=== PATIENT | male | born 1990 | race African-American/Black ===

== ENCOUNTER 2021-09-14 09:27 | Outpatient (CLI) | payer BC | END 2021-09-14 09:28 | disposition home or self-care (01) | LOC: BICMRI 09:27 | PROVIDERS: ATTEND Orthopaedic Surgery | DX: S83.512A Sprain of anterior cruciate ligament of left knee, initial encounter (principal); S80.02XA Contusion of left knee, initial encounter; M25.462 Effusion, left knee; S83.282A Other tear of lateral meniscus, current injury, left knee, initial encounter ==

== ENCOUNTER 2021-10-10 09:29 | Outpatient (CLI) | payer BC ==
[2021-10-10 10:39] LABS: #Basophils 0.1 10x3/uL (0.0-0.2); #Eosinphils 0.1 10x3/uL (0.0-0.5); #Monocytes 0.9 10x3/uL (0.0-1.1); #Neutrophils 4.6 10x3/uL (1.5-8.4); %Basophils 0.6 % (0.0-2.0); %Eosinophils 1.6 % (0.0-6.0); %Lymphocytes 28.1 % (18.0-47.0); %Monocytes 11.6 % (0.0-10.0); %Neutrophils 57.8 % (40.0-75.0); Hemoglobin 13.3 g/dL (13.5-17.5); Mean Corpuscular HGB CONC 32.4 g/dL (32.0-36.0); Mean Corpuscular Hemoglobin 27.8 pg (27.0-33.0); Mean Corpuscular Volume 85.6 fl (81.2-95.1); Mean Platelet Volume 10.9 fl (7.4-10.4); Platelet Count 227 10x3/uL (150-450); RBC Distribution Width 12.3 % (11.5-14.5); Red Blood Cell (RBC) Count 4.79 10x6/uL (4.32-5.72); White Blood Cell (WBC) Count 7.9 10x3/uL (3.5-10.5)
== END 2021-10-10 09:30 | disposition home or self-care (01) ==
LOC: LABBT 09:29
PROVIDERS: ATTEND Orthopaedic Surgery
DX: Z01.812 Encounter for preprocedural laboratory examination (principal); S83.512A Sprain of anterior cruciate ligament of left knee, initial encounter; S83.282A Other tear of lateral meniscus, current injury, left knee, initial encounter; Z20.822 Contact with and (suspected) exposure to COVID-19
CPT/HCPCS: 85025; U0003; U0005

== ENCOUNTER 2021-10-13 05:43 | Observation (INO) | payer BC ==
[2021-10-10 11:06] VITALS: BMI 23.6
[2021-10-13] MEDS ORDERED: Vancomycin 1 GM/200 ML BAG ONE (06:08)
[2021-10-13] MEDS ORDERED: Midazolam HCl 2 mg/2 ml Vial ONE ×2 (06:27→06:35)
[2021-10-13] MEDS ORDERED: fentaNYL Citrate/PF 100 MCG/2 ML SYRINGE ONE ×2 (06:28→09:49)
[2021-10-13] MEDS ORDERED: Fentanyl 100 MCG/2 ML VIAL ONE (06:35)
[2021-10-13] MEDS ORDERED: Bupivacaine 0.25% HCL 30 ML VIAL ONE (06:53)
[2021-10-13] MEDS ORDERED: EPINEPHrine 1 MG/ML AMP ONE (06:53)
[2021-10-13] MEDS ORDERED: Bupivacaine PF 0.5% 30 ML VIAL ONE (06:53)
[2021-10-13] MEDS ORDERED: Fentanyl 100 MCG/2 ML VIAL IV PRN (07:09)
[2021-10-13] MEDS ORDERED: Ondansetron PF 4 MG/2 ML Vial IVP PRN (07:15)
[2021-10-13] MEDS ORDERED: Promethazine HCl 25 MG/ML VIAL IM PRN (07:15)
[2021-10-13] MEDS ORDERED: traMADol HCl 50 MG TAB PO PRN ×2 (07:15)
[2021-10-13] MEDS ORDERED: HYDROcodone/Acetaminophen 5/325 mg Tablet PO PRN ×2 (07:15)
[2021-10-13] MEDS ORDERED: Zolpidem Tartrate 5 MG TAB PO PRN (07:15)
[2021-10-13] MEDS ORDERED: Ropivacaine 0.2% 550 ML 550 ML NERVE BLCK SCH (07:15)
[2021-10-13] MEDS ORDERED: CEFAZOLIN 2 GM VIAL ONE (07:18)
[2021-10-13] MEDS ORDERED: Sodium Chloride 0.9% 100 ML ONE (07:18)
[2021-10-13] MEDS ORDERED: Ondansetron PF 4 MG/2 ML Vial ONE (07:35)
[2021-10-13] MEDS ORDERED: Dexamethasone 20 MG/5 ML VIAL ONE (07:35)
[2021-10-13] MEDS ORDERED: Ketorolac Tromethamine 30 MG/ML VIAL ONE (07:35)
[2021-10-13] MEDS ORDERED: Lidocaine 1% PF 5 ML VIAL ONE (07:35)
[2021-10-13] MEDS ORDERED: Ropivacaine 0.5% HCl/PF (150 MG/30 ML VIAL) ONE (07:35)
[2021-10-13] MEDS ORDERED: PROPOFOL 200 MG/20 ML VIAL ONE (07:35)
[2021-10-13] MEDS ORDERED: PHENYLEPHRINE-NS 100 MCG/ML 10 ML SYRINGE ONE (07:35)
[2021-10-13] MEDS ORDERED: Methocarbamol 500 MG TAB PO PRN (09:06)
[2021-10-13] MEDS ORDERED: Milk Of Magnesia 30 ML UDCUP PO PRN (09:06)
[2021-10-13] MEDS ORDERED: Bisacodyl 10 MG SUPP PR PRN (09:06)
[2021-10-13] MEDS ORDERED: HYDROcodone/Acetaminophen 7.5/325 mg Tablet PO PRN ×2 (09:06)
[2021-10-13] MEDS ORDERED: diphenhydrAMINE 50 MG CAP PO PRN (09:06)
[2021-10-13] MEDS ORDERED: Acetaminophen 500 MG TAB PO PRN (09:06)
[2021-10-13] MEDS ORDERED: ceFAZolin 2 GM/Dextrose 50 ML 2 GM in Premix Bag 1 BAG IVPB SCH (09:15)
[2021-10-13] MEDS ORDERED: Meperidine HCl/PF 25 MG/ML VIAL ONE (09:32)
[2021-10-13] MEDS ORDERED: Ketorolac Tromethamine 30 MG/ML VIAL IVP SCH (12:00)
[2021-10-13] MEDS: Dextrose 5 %-0.45 % NaCl 1,000 ML IV SCH ×2 (12:48→22:04)
[2021-10-13] MEDS: CEFAZOLIN 2 GM in Sodium Chloride 0.9% 100 ML IVPB SCH ×2 (15:33→23:59)
[2021-10-13] MEDS: Ketorolac Tromethamine 30 MG/ML VIAL IVP SCH ×2 (15:36→21:20)
[2021-10-13] MEDS: Famotidine 20 MG TAB PO SCH (21:21)
[2021-10-14] MEDS: Ketorolac Tromethamine 30 MG/ML VIAL IVP SCH ×2 (02:57→08:56)
[2021-10-14] MEDS: Dextrose 5 %-0.45 % NaCl 1,000 ML IV SCH (06:16)
[2021-10-14 07:45] VITALS: BP 106/66; TEMP 98.3
[2021-10-14] MEDS: Famotidine 20 MG TAB PO SCH (08:57)
== END 2021-10-14 11:25 | disposition home or self-care (01) ==
LOC: SDC 05:43 → SURG A 09:09
PROVIDERS: ADMIT Orthopaedic Surgery; ATTEND Orthopaedic Surgery
PROC: 0MRP47Z Replacement of Left Knee Bursa and Ligament with Autologous Tissue Substitute, Percutaneous Endoscopic Approach (ICD-10-PCS; principal; 2021-10-13)
PROC: 0SBD4ZZ Excision of Left Knee Joint, Percutaneous Endoscopic Approach (ICD-10-PCS; 2021-10-13)
PROC: 3E0T3BZ Introduction of Anesthetic Agent into Peripheral Nerves and Plexi, Percutaneous Approach (ICD-10-PCS; 2021-10-13)
DX: S83.512A Sprain of anterior cruciate ligament of left knee, initial encounter (principal); S83.282A Other tear of lateral meniscus, current injury, left knee, initial encounter; S83.422A Sprain of lateral collateral ligament of left knee, initial encounter; S83.412A Sprain of medial collateral ligament of left knee, initial encounter; X50.0XXA Overexertion from strenuous movement or load, initial encounter; Y93.61 Activity, american tackle football
CPT/HCPCS: 96374; 96375; 96376; A4306; C1713; G0378; J0171; J0690; J1100; J1885; J2175; J2250; J2405; J2704; J2795; J3010; J3370; J3490; S0020